=== PATIENT | male | born 1980 | race Asian ===

== ENCOUNTER 2020-10-19 12:51 | Day surgery (SDC) | payer BC ==
[2020-10-14 09:35] LABS: PLATELET COUNT 223 K/uL (142-355)
[2020-10-14 09:46] LABS: POTASSIUM 4.3 mmol/L (3.6-5.2)
== END 2020-10-19 16:35 | disposition home or self-care (01) ==
LOC: OR 12:51
PROVIDERS: ATTEND Internal Medicine Gastroenterology
PROC: 0DJD8ZZ Inspection of Lower Intestinal Tract, Via Natural or Artificial Opening Endoscopic (ICD-10-PCS; principal; 2020-10-19)
DX: K64.8 Other hemorrhoids (principal); K92.1 Melena; Z20.822 Contact with and (suspected) exposure to COVID-19
CPT/HCPCS: 80053; 85027; 87635; J2704; U0003